=== PATIENT | male | born 1955 | race Caucasian/White ===

== ENCOUNTER 2016-06-18 07:54 | Emergency (ER) | payer OTHER ==
[2016-06-18 08:08] VITALS: BP 127/78; RESP 18; TEMP 99.5
[2016-06-18] MEDS ORDERED: IPRATROPIUM/ALBUTEROL 3 ML DEYVIAL IH ONE (08:15)
--- NOTE | 2016-06-18 08:22 | UCPHY ---
H & P Time Seen by Provider: 06/18/16 08:11 Patient Type: New HPI/ROS: This patient has an illness that started on June 08 with fevers chills myalgias and cough the classic flu." His symptoms improved by last weekend only to have recurrence of cough this week with increasing shortness of breath in the mornings. He has a feeling of chest congestion. No other associated symptoms except for ongoing subjective fevers. ROS: No particular fatigue. Constitutional otherwise negative except for fevers as noted above, HEENT: No nasal congestion or sore throat, cardiovascular: No lightheadedness or chest pain. GI: No nausea or vomiting. Integumentary: No symptoms 10 point ROS is otherwise negative Past Medical/Surgical History: Exercise-induced asthma Smoking Status: Former smoker Physical Exam: Vital signs are notable for mild hypoxia with an O2 sat on room air of 91%. Other vitals are normal General Appearance: Alert, no distress. Eyes: Pupils equal and round no pallor or injection. ENT, Mouth: Mucous membranes moist. Respiratory: Bilateral expiratory wheeze and rhonchi. Cardiovascular: Regular rate and rhythm. No murmur gallop or rub. No peripheral edema Neurological: Alert with no focal deficits appreciated Skin: Warm and dry, no rashes. Musculoskeletal: Neck is supple nontender. Extremities are symmetrical, full range of motion. Psychiatric: Mood and affect are normal DIFFERENTIAL DIAGNOSIS: After history and physical exam differential diagnosis was considered for acute bronchitis, pneumonia, URI with asthma Constitutional: Initial Vital Signs Temperature (C) 37.5 C 06/18/16 08:06 Heart Rate 87 06/18/16 08:06 Respiratory Rate 18 06/18/16 08:06 Blood Pressure 127/78 H 06/18/16 08:06 O2 Sat (%) 91 L 06/18/16 08:06 O2 Delivery Mode Room Air Allergies/Adverse Reactions: codeine Allergy (Verified 06/18/16 08:05) Hives Penicillins Allergy (Verified 06/18/16 08:05) Hives Sulfa (Sulfonamide Antibiotics) Allergy (Verified 06/18/16 08:05) Anaphylaxis sulfamethoxazole [From Bactrim] Allergy (Verified 06/18/16 08:05) Hives trimethoprim [From Bactrim] Allergy (Verified 06/18/16 08:05) Hives Home Medications: Medication Instructions Recorded Albuterol Hfa Anes Only [Proair 2 puffs IH Q4 PRN #1 mdi 06/18/16 Hfa Icu (*)] Azithromycin [Zithromax] 250 mg PO DAILY #6 tab 06/18/16 Fluticasone Hfa 220 Mcg [Flovent 2 puffs IH DAILY #1 mdi 06/18/16 220 MCG Hfa MDI (*)] MDM/Departure - MDM Medications Given: Discontinued Medications Albuterol/Ipratropium (Duoneb) 3 ml IH EDNOW ONE Stop: 06/18/16 08:16 Last Admin: 06/18/16 08:19 Dose: 3 ml ED Course/Re-evaluation: DuoNeb with increased aeration, decreased wheeze. No rales evident on repeat exam after DuoNeb. Patient feels significant subjective improvement in his O2 sat improved to 93% on room air. Discussion: This patient I think has not bronchitis complicated by mild asthma exacerbation improving with treatment. I counseled him regarding this. Given findings, I feel he warrants some macrolide antibiotic. Given improvement will hold off on further workup at this time. - Depart Disposition: Home, Routine, Self-Care Clinical Impression: Acute bronchitis Qualifiers: Bronchitis organism: unspecified organism Qualifier Code: (J20.9) Acute bronchitis, unspecified Asthma Qualifiers: Asthma severity: mild intermittent Asthma complication type: with acute exacerbation Qualifier Code: (J45.21) Mild intermittent asthma with (acute) exacerbation Condition: Good Instructions: Asthma (ED), Acute Bronchitis (ED) Additional Instructions: Diagnosis: 1. Bronchitis 2. Asthma Plan: Humidifier Albuterol inhaler with spacer for cough, wheeze or shortness of breath Zithromax antibiotic If her cough is not resolving over the next 5 days or so than at the Flovent steroid inhaler in addition. Return here to the emergency department for any significant worsening despite the treatment plan Prescriptions: Fluticasone Hfa 220 Mcg [Flovent 220 MCG Hfa MDI (*)] 2 puffs IH DAILY #1 mdi Albuterol Hfa Anes Only [Proair Hfa Icu (*)] 2 puffs IH Q4 PRN #1 mdi PRN Reason: Wheezing Azithromycin [Zithromax] 250 mg PO DAILY #6 tab Referrals: Tobin,Adriane H, MD [Primary Care Provider] - As per Instructions - PQRS PQRS Measurement: NA
[2016-06-18 08:39] VITALS: PULSE 85; O2SAT 93
== END 2016-06-18 08:45 | disposition home or self-care (01) ==
LOC: CED 07:54
DX: J20.9 Acute bronchitis, unspecified (principal); J45.21 Mild intermittent asthma with (acute) exacerbation; Z87.891 Personal history of nicotine dependence
CPT/HCPCS: G0463-PO